=== PATIENT | female | born 1950 | race Caucasian/White ===

== ENCOUNTER 2017-02-05 10:30 | Day surgery (SDC) | payer OTHER ==
[~2017-02-05] VITALS: Ht 177.8 cm; Wt 81.7 kg
[~2017-02-05 10:30] MED LIST: ACYC400T2 PO; B6 PO; CHOL500011 PO; CYAN500 PO; LACT1CAP73 PO; MV-M1CAP15 PO; OMEP40CA36 PO; PHYT100T PO; SERT25TA6 PO
[2017-02-05] MEDS ORDERED: fentaNYL-PF 50 mCg/mL 2 mL Inj ONE (10:31)
[2017-02-05] MEDS ORDERED: Propofol 10,000 mCg/mL 20 mL Inj ONE (10:31)
[2017-02-05 10:56] VITALS: BP 137/90; PULSE 60; RESP 15; O2SAT 95
--- NOTE | 2017-02-05 11:35 | PCM.HPANE ---
Patient Data Date of Service: Feb 05, 2017 ([id number]) Surgeon Admitting Provider: Attending Provider:Mac Garrido MD Primary Care Physician:Ap Denton MD Other Provider:Oumar Marino Anesthesia Reason for Visit Dysphagia Ht/WT & BMI Height (Feet): 5 Height (Inches): 10 Weight (Kilograms): 81.65 Body Mass Index 25.00 Allergies Coded Allergies: Sulfa (Sulfonamide Antibiotics) (Verified Allergy, Severe, ANAPHYLAXIS- HIVES, SWOLLEN FACE,THROAT CLOSES, 08/14/15) aspirin (Verified Allergy, Severe, ANAPHYLAXIS-HIVES,SWOLLEN FACE,THROAT CLOSES, 08/14/15) codeine (Verified Adverse Reaction, Severe, NAUSEA & FAINTING, 08/14/15) Uncoded Allergies: CATS (Adverse Reaction, Severe, ITCHING,CONGESTION,SNEEZING, 03/08/15) Past Anesthesia History Anesthesia History: Denies:: Abnormal Airway, Anesthesia Reactions, Difficult Intubation, Fam Anesthesia Reaction, Fam Malignant Hypertherm, Malignant Hyperthermia Diabetes History Hx Diabetes?: No MRSA MRSA: No Medications Reported Medications Omeprazole 40 Mg Capsule.dr40 Mg PO DAILY Ref 0 02/03/17 Sertraline HCl (Sertraline)25 Mg Voqvyh95 Mg PO HS 30 Days Ref 0 08/07/15 Discontinued Reported Medications Acyclovir 400 Mg Zaifhv299 Mg PO TID Ref 0 02/03/17 Phytonadione (Vitamin K)100 Mcg Lpfpyq705 Mcg PO DAILY 12/17/16 Lactobacillus Combo No.11 (Probiotic)1 Each Cap.sprink1 Each PO DAILY 06/04/15 [B6] No Conflict [id number] Mg PO TID 04/18/15 Cyanocobalamin (Vitamin B12)500 Mcg Tablet1,000 Mcg PO DAILY 03/28/15 Cholecalciferol (Vitamin D3) (Vitamin D3)5,000 Unit Vqwwqt60,000 Unit PO HS 03/28/15 Mv-Mn/FA/Vit K/Lycop/Lut/Coq10 (Daily Multivitamin Capsule)200-100MCG Capsule1 Each PO DAILY 03/28/15 History History of ENT Problems?: Yes HEENT History: Positive for:: Dysphagia Sinus Problem (seasonal allergies) Denies:: Abnormal Airway Cataracts Difficult Intubation Hearing Problem Denture Type: None Teeth Condition: Within Normal Limits Hx of Heart Problems?: Yes Cardiovascular History: Positive for:: Edema (Due to recent DVT) Thrombophlebitis Valvular Heart Disease (PT REPORTS MITRAL VALVE PROLAPSE) Denies:: Cardiac Surgery Chest Pain Congestive Heart Failure Heart Murmur Hypertension Irregular Heartbeat Pacemaker Rheumatic Fever Hx of Respiratory Problem?: Yes Respiratory History: Positive for:: Pneumonia (1 1/2 years) Use of C-PAP Machine (LEANN+ ) Denies:: Asthma COPD Chest Surgery Dyspnea Emphysema Hemoptysis Tuberculosis Hx Neurologic Problems?: No Neurological History: Denies:: Alzheimer's Disease CVA Dementia Dizziness Headaches Parkinson's Disease Seizures (Seizure like activity prior to admit today.) Hx of GI Problems?: Yes Hx of Problems?: Yes Genitourinary History: Positive for:: Urinary Tract Infection Denies:: HX of Hemodialysis Kidney Stones Female Hx: Positive for:: Endometriosis Problems with Breasts? (Left breast cancer) Denies:: Currently Pelvic Inflammatory Skin History: Denies:: History Skin Disorders? Pressure Ulcers Hx Musculoskeletal Problems?: Yes Musculoskeletal History: Denies:: Back Injury Joint Replacement Musculoskeletal Trauma Hx of Psycho/Social Problems?: Yes Psycho Social History: Positive for:: Hx Depression Denies:: Anxiety Bipolar Disorder Suicide Attempt Hx Surgeries?: Yes (TONSIL, RT SHOULDER,D & C, LT BREAT CA W/LUMPECTOMY) Hx Any Other Health Problems?: Yes Other History: Positive for:: Cancer (Left Breast ) Hospitalization Denies:: Endocrine Disease Thyroid Disease History Blood Transfusions: Positive for:: Blood Transfusions (Currently transfusing at this time) Denies:: Blood Transfuse Reaction Hx Diabetes: No Hx Alcohol Use: NoHx Substance Use: No Smoking Status: Never Smoker Have You Smoked inLast 12 mo: No Stop/Bang Treated for Sleep Apnea?: Yes Do You Have a CPAP Machine?: Yes LEANN Risk Assessment: High Risk, =/>3 Yes Risk Assessment Category Category 1A: Patient has history of documented sleep apnea, and HAS NOT received any narcotic, sedative or anesthesia administration during this stay. Category 1B: Patient has history of documented sleep apnea, and HAS received any narcotic , sedative or anesthesia administration during this stay Category 2: Patient has SUSPECTED Obstructive Sleep Apnea, and HAS received any narcotic , sedative or anesthesia administration during this stay. Category 3: Patient has SUSPECTED Obstructive Sleep Apnea and HAS NOT received narcotic, sedative or anesthesia administration during this stay. Category 4: Outpatient in Procedural Areas with known sleep apnea or who screen positive for High Risk via the STOP/BANG questionnaire. Exam Exam Vital Signs Vital Signs Date Time Temp Pulse Resp B/P Pulse Ox O2 Delivery O2 Flow Rate FiO2 02/05/17 10:56 60 15 137/90 95 Room Air General Appearance: Alert, Oriented X3 HEENT/AIRWAY: MP 2 Lungs: Clear to Auscultation Heart: Exam Unremarkable Plan Impression Patient chart reviewed, patient interviewed and anesthestic plan with risks, benefits, and alternatives discussed, and informed consent obtained. ASA Physical Status: ASA2 Mod Systemic Disease Anesthetic Plan: GA Bene/Risks/Altern/Consents: Yes HP Complete Prior to Induction: Yes Rich Henry MD Feb 05, 2017 11:35
[2017-02-05] MEDS ORDERED: Lactated Ringer's 1,000 ML IV SCH ×2 (11:36→12:05)
[2017-02-05] MEDS ORDERED: Ondansetron 2 mg/mL 2 mL Inj IVPUSH PRN ×2 (11:40→12:05)
[2017-02-05] MEDS: Lactated Ringer's 1,000 ML IV ONE ×2 (11:52→12:00)
[2017-02-05 12:05] VITALS: BP 105/60; PULSE 60; RESP 16; O2SAT 94
--- NOTE | 2017-02-05 12:05 | PCM.ANEP1 ---
Post Anesthesia PACU Phase 1 Assessment Vital Signs 106/60, 94%, 10, 66 Vital Signs Date Time Temp Pulse Resp B/P Pulse Ox O2 Delivery O2 Flow Rate FiO2 02/05/17 10:56 60 15 137/90 95 Room Air Anesthetic Administered: GA Level of Alertness: Awake, talking GUZMAN's with Equal Strength: Yes Pain: No Nausea or Vomiting: No CV Function & Hydration Stable: Yes Airway Device: none Oxygen Delivery: Room Air Lungs: Clear to Auscultation Dermatome Level: Full Sensation Summary easy sedation PACU Phase 2 Assessment Complications: No Follow up Care: No Patient Instructions Provided: N/A Rich Henry MD Feb 05, 2017 12:05
[2017-02-05 12:15] VITALS: BP 104/64; PULSE 61; RESP 16; O2SAT 95
[2017-02-05 12:25] VITALS: BP 120/73; PULSE 60; RESP 16; O2SAT 98
[2017-02-05 12:35] VITALS: BP 106/69; PULSE 77; RESP 16; O2SAT 95
--- NOTE | 2017-02-05 12:54 | ENDO ---
[address] [address] ENDOSCOPY PROCEDURE PATIENT: MICHAEL TERRY : 1950 MR#: [id number] ADMIT: 02/05/2017 JOB ID: [id number] DATE OF SERVICE: 02/05/2017 PROCEDURE: Esophagogastroduodenoscopy. INDICATION: Dysphagia. The patient's ASA classification, Mallampati score, and medications as per Dr. Rich Henry's anesthesia report. INSTRUMENT USED: [id number] PROCEDURE DETAILS: After informed consent was obtained, the patient was brought to the GI suite, where she was placed on oxygen via nasal cannula and monitored with continuous pulse oximeter, telemetry, and blood pressure monitoring. A time-out was performed. Then, she was placed in a left lateral decubitus position and medications were administered for sedation. A bite block was placed. The standard EGD scope was inserted through the bite block and advanced under direct visualization to second portion of duodenum without difficulty. FINDINGS: 1. Normal-appearing duodenal bulb, first and second portion. 2. Normal-appearing pylorus and antrum. In the gastric body and fundus of the stomach, there were multiple polyps ranging in size from 3-4 mm to approximately 6-7 mm. Polyps appearance was consistent with fundic gland polyps. The largest polyp in the gastric body was biopsied for sampling. 3. Retroflexed views also revealed a hiatal hernia. Otherwise, normal-appearing cardia and fundus aside from fundic gland polyps noted. 4. The diaphragmatic hiatus was at approximately 41 cm. The GE junction was at 39 cm. At the GE junction, there was a partial Schatzki ring. As we had traversed the GE junction, there was no resistance encountered; however there was an angle between the GE junction and hiatal hernia. Then I elected to empirically dilate the GE junction. It was difficult to tell the diameter at the GE junction, therefore I started at 10 mm and sequentially dilated up to 15 mm. Following dilation to 15 mm, mild heme was noted at the GE junction. At this point, I elected to disrupt the Schatzki's ring by taking multiple biopsies with cold biopsy forceps. 5. The remainder of the esophagus appeared normal otherwise. Multiple biopsies were obtained in the midesophagus. IMPRESSION: 1. Multiple gastric body polyps, appearance consistent with fundic gland polyps. 2. Small hiatal hernia. 3. Partial Schatzki's ring, status post dilation and biopsy forceps. RECOMMENDATIONS: 1. Continue PPI daily. 2. Follow up in GI clinic in 2-4 weeks. If symptoms have not improved, may need to consider further repeat dilation with balloon size larger than 15 mm. COMPLICATIONS: None. ESTIMATED BLOOD LOSS: Less than 5 mL.
--- NOTE | 2017-02-06 14:26 | PATH ---
SURGICAL PATHOLOGY Attending Physician:Rojas Forte CASE STATUS: Signed Out PATIENT NAME: MICHAEL TERRY PID: [id number] : 1950 DATE COLLECTED:02/05/2017 19:17 SPECIMEN: 1: Stomach, Polyp, Biopsy 2: Esophagus, Biopsy 3: Esophagus, Biopsy CLINICAL HISTORY: 1). GASTRIC POLYP BIOPSY 2). MID ESOPHAGUS BIOPSY 3). GASTROESOPHAGEAL JUNCTION BIOPSY FINAL DIAGNOSIS: 1.GASTRIC POLYP, BIOPSY: PORTIONS OF GASTRIC FUNDIC GLAND POLYP. Negative for atypia and malignancy. 2.MID ESOPHAGUS, BIOPSY: AVULSED PORTIONS OF SQUAMOUS MUCOSA WITH NO DIAGNOSTIC ABNORMALITY. Negative for increased eosinophils. Negative for atypia and malignancy. 3.GASTROESOPHAGEAL JUNCTION, BIOPSY: SQUAMOCOLUMNAR JUNCTIONAL MUCOSA WITH NO DIAGNOSTIC ABNORMALITY. Negative for intestinal metaplasia. Negative for dysplasia and malignancy. ICD10 K20.9 GROSS DESCRIPTION: The specimen is received in three formalin filled containers labeled with the patient's name. 1). The specimen is labeled "gastric polyp" and consists of 3 tiny portions of tissue which aggregate to 0.2 x 0.2 x 0.2 CM. The specimen is entirely submitted in cassette 1A. 2). The specimen is labeled "mid esophagus" and consists of 2 portions of tissue which aggregate to 0.2x 0.2 x 0.2 CM. The specimen is entirely submitted in cassette 2A. 3). The specimen is labeled " GEJ " and consists of 2 portions of tissue which aggregate to 0.2 x 0.2 x 0.2 CM. The specimen is entirely cemented in cassette 3A. 02/05/2017DC MICRO DESCRIPTION: See diagnosis. ICD-9 CODES: CPT CODES: 1: 62094 2: 75691 3: 21902 Electronically Signed Out Lali Quinones MD [facility] [address], [place] [address] Technical component performed at [facility], [address], [place], [address]
== END 2017-02-05 23:59 | disposition home or self-care (01) ==
LOC: END 10:30
PROVIDERS: ATTEND Internal Medicine Gastroenterology
DX: K22.2 Esophageal obstruction (principal); K31.7 Polyp of stomach and duodenum; K44.9 Diaphragmatic hernia without obstruction or gangrene; R13.10 Dysphagia, unspecified; Z85.3 Personal history of malignant neoplasm of breast; Z92.21 Personal history of antineoplastic chemotherapy; Z86.718 Personal history of other venous thrombosis and embolism; G47.33 Obstructive sleep apnea (adult) (pediatric); G62.9 Polyneuropathy, unspecified